=== PATIENT | female | born 1955 | race Two or more races ===

== ENCOUNTER 2017-07-20 10:15 | Outpatient (CLI) | payer OTHER ==
[~2017-07-20 10:15] MED LIST: ARMOUR THYROID120 M1; TUSSI-PRES LIQ118 ML PO
== END 2017-07-20 10:31 | disposition home or self-care (01) ==
LOC: MAMO-SONO 10:15
DX: Z12.31 Encounter for screening mammogram for malignant neoplasm of breast (principal); Z12.39 Encounter for other screening for malignant neoplasm of breast; Z00.01 Encounter for general adult medical examination with abnormal findings

== ENCOUNTER 2017-09-13 07:33 | Outpatient (CLI) | payer OTHER ==
[~2017-09-13] VITALS: Ht 172.7 cm; Wt 59.0 kg
== END 2017-09-13 07:50 | disposition home or self-care (01) ==
LOC: OFIC 805 07:33
DX: H61.23 Impacted cerumen, bilateral (principal); H93.13 Tinnitus, bilateral

== ENCOUNTER 2018-04-15 09:13 | Outpatient (CLI) | payer OTHER ==
[~2018-04-15] VITALS: Ht 152.4 cm; Wt 59.0 kg
== END 2018-04-15 09:20 | disposition home or self-care (01) ==
LOC: OFIC 805 09:13
DX: H93.13 Tinnitus, bilateral (principal); H61.23 Impacted cerumen, bilateral

== ENCOUNTER 2018-09-26 10:03 | Outpatient (CLI) | payer OTHER ==
[~2018-09-26] VITALS: Ht 172.7 cm; Wt 59.0 kg
== END 2018-09-26 16:23 | disposition home or self-care (01) ==
LOC: OFIC 805 10:03
DX: H61.23 Impacted cerumen, bilateral (principal); J30.89 Other allergic rhinitis

== ENCOUNTER 2018-12-15 12:54 | Outpatient (CLI) | payer OTHER ==
[~2018-12-15] VITALS: Ht 152.4 cm; Wt 59.0 kg
== END 2018-12-15 16:00 | disposition home or self-care (01) ==
LOC: OFIC 805 12:54
DX: H93.13 Tinnitus, bilateral (principal); H61.23 Impacted cerumen, bilateral

== ENCOUNTER → 2020-01-17 | Outpatient (CLI) | payer OTHER | END | disposition home or self-care (01) | LOC: OFIC 805 01-04 12:45 | PROVIDERS: ATTEND Otolaryngology | DX: J30.89 Other allergic rhinitis (principal); H61.23 Impacted cerumen, bilateral; H93.13 Tinnitus, bilateral; J34.3 Hypertrophy of nasal turbinates ==